=== PATIENT | female | born 1945 | race Caucasian/White ===

== ENCOUNTER → 2016-07-23 | Outpatient (CLI) | payer MEDICARE, OTHER ==
[~2016-07-23] MED LIST: ASPIRIN81 MG PO; CLARITIN10 MG PO; CYMBALTA60 MG PO; IPRAT-ALBUT 0.5-3 ML INH; KLONOPIN TAB 00.5 MG PO; LEVAQUIN750 MG PO; LEVEMIR FL100 UNIT/1 SQ; NORCO 5-325 TA1 EACH PO; NORVASC 5 MG TAB5 MG PO; PREDNISONE 20 M20 MG PO; PROVENTIL HFA 61 INH INH; RANITIDINE HCL150 MG PO; SIMVASTATIN20 MG PO; SYNTHROID88 MCG PO; TENORMIN 50 MG50 MG PO; TESSALON PERLE100 MG PO; [UNRECOGNIZED DRUG - OTHER] PO
== END ==
LOC: CT 10:50
DX: C34.31 Malignant neoplasm of lower lobe, right bronchus or lung (principal); R91.8 Other nonspecific abnormal finding of lung field; C77.1 Secondary and unspecified malignant neoplasm of intrathoracic lymph nodes; Z87.891 Personal history of nicotine dependence
CPT/HCPCS: 71260; J7050; Q9962

== ENCOUNTER → 2016-09-24 | Outpatient (CLI) | payer MEDICARE, OTHER | LOC: CT 08:00 | DX: C34.31 Malignant neoplasm of lower lobe, right bronchus or lung (principal); C77.1 Secondary and unspecified malignant neoplasm of intrathoracic lymph nodes; J98.4 Other disorders of lung; R91.8 Other nonspecific abnormal finding of lung field; Z87.891 Personal history of nicotine dependence | CPT/HCPCS: 71260; J7050; Q9962 ==

== ENCOUNTER 2016-11-12 22:42 | Observation (INO) | payer MEDICARE, OTHER ==
[~2016-11-12] VITALS: Ht 160 cm; Wt 70.4 kg
[~2016-11-12 22:42] MED LIST changes: -IPRAT-ALBUT 0.5-3 ML INH; -LEVAQUIN750 MG PO; -LEVEMIR FL100 UNIT/1 SQ; -PREDNISONE 20 M20 MG PO; -TESSALON PERLE100 MG PO; -[UNRECOGNIZED DRUG - OTHER] PO
[2016-11-13 00:12] LABS: HEMOGLOBIN 9.7 gm/dl (12.3-15.3); RED BLOOD COUNT 3.4 M/UL (4.00-5.10); WHITE BLOOD COUNT 7.6 K/UL (4.5-11.0)
[2016-11-13 00:29] LABS: BUN/CREATININE RATIO 11 (0-10)
[2016-11-13 05:56] LABS: HEMOGLOBIN 9.7 gm/dl (12.3-15.3); RED BLOOD COUNT 3.42 M/UL (4.00-5.10); WHITE BLOOD COUNT 7.6 K/UL (4.5-11.0)
[2016-11-13 06:09] LABS: BUN/CREATININE RATIO 9 (0-10)
[2016-12-07] MEDS ORDERED: PREDNISONE 20 M20 MG PO (13:21)
[2016-12-11] MEDS ORDERED: [UNRECOGNIZED DRUG - OTHER] PO (10:19)
[2016-12-11] MEDS ORDERED: TESSALON PERLE100 MG PO (10:19)
[2016-12-11] MEDS ORDERED: LEVAQUIN750 MG PO (10:19)
[2016-12-11] MEDS ORDERED: LEVEMIR FL100 UNIT/1 SQ (10:23)
[2016-12-11] MEDS ORDERED: IPRAT-ALBUT 0.5-3 ML INH (10:24)
== END 2016-11-13 08:00 | disposition home or self-care (01) ==
LOC: ER1 22:42 → ZEROF 11-13 02:30 → MED SURG 4 11-13 07:40
PROVIDERS: Physician Assistant; ADMIT Family Medicine
DX: R07.81 Pleurodynia (principal); I10 Essential (primary) hypertension; R82.90 Unspecified abnormal findings in urine; E11.9 Type 2 diabetes mellitus without complications; E78.5 Hyperlipidemia, unspecified; C34.90 Malignant neoplasm of unspecified part of unspecified bronchus or lung; E03.9 Hypothyroidism, unspecified; Z88.2 Allergy status to sulfonamides; Z88.5 Allergy status to narcotic agent; Z79.82 Long term (current) use of aspirin; Z79.899 Other long term (current) drug therapy; Z87.891 Personal history of nicotine dependence
CPT/HCPCS: 36415; 71010; 78306; 80048; 80053; 81001; 83605; 83690; 84484; 85025; 87040; 87086; 96374; 96375; 99285; A9503; G0378; J1885; J1956; J2405; J7030; J7050; Q9962

== ENCOUNTER → 2017-02-04 | Outpatient (CLI) | payer MEDICARE, OTHER ==
[~2017-02-04] MED LIST changes: +IPRAT-ALBUT 0.5-3 ML INH; +LEVAQUIN750 MG PO; +LEVEMIR FL100 UNIT/1 SQ; +PREDNISONE 20 M20 MG PO; +TESSALON PERLE100 MG PO; +[UNRECOGNIZED DRUG - OTHER] PO
== END ==
LOC: CT 11:00
DX: J18.9 Pneumonia, unspecified organism (principal)
CPT/HCPCS: 71250

== ENCOUNTER → 2017-02-06 | Outpatient (CLI) | payer MEDICARE, OTHER | LOC: HEART 5 09:00 | DX: C34.91 Malignant neoplasm of unspecified part of right bronchus or lung (principal); C79.9 Secondary malignant neoplasm of unspecified site; F41.9 Anxiety disorder, unspecified; F32.9 Major depressive disorder, single episode, unspecified; I10 Essential (primary) hypertension; J32.9 Chronic sinusitis, unspecified; J30.9 Allergic rhinitis, unspecified; J18.9 Pneumonia, unspecified organism; K85.90 Acute pancreatitis without necrosis or infection, unspecified; R05 Cough; R10.11 Right upper quadrant pain; Z68.27 Body mass index [BMI] 27.0-27.9, adult; F17.200 Nicotine dependence, unspecified, uncomplicated; R94.2 Abnormal results of pulmonary function studies | CPT/HCPCS: 94060; 94729 ==